=== PATIENT | male | born 1980 | race Caucasian/White ===

== ENCOUNTER 2017-10-27 05:28 | Emergency (ER) | payer MEDICAID, SELFPAY ==
[2017-10-27 06:40] LABS: BASO # 0.1 10^3/uL (0.0-0.2); BASO % 1.2 % (0.0-1.0); EOS # 0.2 10^3/uL (0.0-0.50); HEMATOCRIT 28.7 % (42.0-52.0); HEMOGLOBIN 9.3 g/dl (13.5-17.5); IMMATURE GRANULOCYTE % 0.2 % (0-3.0); LYMPH # 2.1 10^3/uL (1.5-4.5); LYMPH % 37.7 % (24.0-44.0); MEAN CORPUSCULAR HEMOGLOBIN 24.9 pg (27.0-33.0); MEAN CORPUSCULAR HGB CONC 32.4 g/dl (32.0-36.5); MEAN CORPUSCULAR VOLUME 76.9 fl (80.0-96.0); MONO # 0.5 10^3/uL (0.0-0.8); MONO % 9.3 % (0.0-5.0); NEUTROPHILS # 2.8 10^3/uL (1.8-7.7); NEUTROPHILS % 48.6 % (36.0-66.0); PLATELET COUNT, AUTOMATED 270 10^3/uL (150-450); RED BLOOD COUNT 3.73 10^6/uL (4.30-6.10); RED CELL DISTRIBUTION WIDTH 15.8 % (11.5-14.5); WHITE BLOOD COUNT 5.7 10^3/uL (4.0-10.0)
[2017-10-27] MEDS: GASTROGRAFIN SOLUTION 30ML PO ×4 (07:23→08:03)
[2017-10-27] MEDS: MORPHINE 4 MG/ML 1ML VIAL/SYRINGE (J2270) IV ×2 (07:24)
[2017-10-27] MEDS: NS 1,000 ML IV ×2 (07:25)
[2017-10-27 07:27] LABS: ALBUMIN 3.9 GM/DL (3.2-5.2); ALBUMIN/GLOBULIN RATIO 1.44 (1.00-1.93); ALKALINE PHOSPHATASE 75 U/L (45-117); ALT/SGPT 39 U/L (12-78); AMYLASE 35 U/L (25-115); ANION GAP 11 MEQ/L (8-16); AST/SGOT 25 U/L (7-37); BILIRUBIN,DIRECT < 0.1 MG/DL (0.0-0.2); BILIRUBIN,TOTAL 0.2 MG/DL (0.2-1.0); BLOOD UREA NITROGEN 13 MG/DL (7-18); CALCIUM LEVEL 7.9 MG/DL (8.5-10.1); CARBON DIOXIDE LEVEL 23 MEQ/L (21-32); CHLORIDE LEVEL 109 MEQ/L (98-107); CREATININE FOR GFR 0.97 MG/DL (0.70-1.30); GLOMERULAR FILTRATION RATE > 60.0 (>60); GLUCOSE, FASTING 128 MG/DL (70-100); LIPASE 272 U/L (73-393); POTASSIUM SERUM 3.8 MEQ/L (3.5-5.1); SODIUM LEVEL 143 MEQ/L (136-145); TOTAL PROTEIN 6.6 GM/DL (6.4-8.2)
[2017-10-27] MEDS ORDERED: ISOVUE-370 76% 100ML VIAL (Q9967) As Ordered ×2 (08:18)
[2017-10-27 09:14] LABS: KETONE, URINE AUTO RFX TRACE mg/dL (NEGATIVE); LEUKOCYTE ESTERASE UR AUTO RFX NEGATIVE (NEGATIVE); MUCUS, URINE RFX LARGE (NEGATIVE); NITRITE, URINE AUTO RFX NEGATIVE (NEGATIVE); RBC, URINE AUTO RFX 0 /HPF (0-3); SPECIFIC GRAVITY UR AUTO RFX 1.034 (1.002-1.035); SQUAM EPITHELIAL CELL UR AURFX 0 /HPF (0-6); WBC, URINE AUTO RFX 0 /HPF (0-3)
[2017-10-27 09:51] LABS: MICROSCOPIC INDICATED? RFX NO (NO)
== END 2017-10-27 10:08 | disposition home or self-care (01) ==
LOC: M ED 05:28
DX: K59.00 Constipation, unspecified (principal); K56.7 Ileus, unspecified; K50.90 Crohn's disease, unspecified, without complications; K64.9 Unspecified hemorrhoids; F17.200 Nicotine dependence, unspecified, uncomplicated; Z88.8 Allergy status to other drugs, medicaments and biological substances
CPT/HCPCS: J2270

== ENCOUNTER 2018-01-08 15:57 | Emergency (ER) | payer OTHER, MEDICAID ==
[2018-01-08] MEDS: AZITHROMYCIN 250 MG TAB PO (16:15)
[2018-01-08] MEDS: cefTRIAXone SOD 250 MG VIAL (J0696) IM (16:15)
[2018-01-08 18:05] LABS: CHLAMYDIA DNA AMPLIFICATION NEGATIVE (NEGATIVE); GC DNA AMPLIFICATION NEGATIVE (NEGATIVE)
== END 2018-01-08 16:43 | disposition home or self-care (01) ==
LOC: M ED 15:57
DX: Z11.3 Encounter for screening for infections with a predominantly sexual mode of transmission (principal); K50.90 Crohn's disease, unspecified, without complications; F17.200 Nicotine dependence, unspecified, uncomplicated; Z88.8 Allergy status to other drugs, medicaments and biological substances; Z79.899 Other long term (current) drug therapy
CPT/HCPCS: J0696

== ENCOUNTER 2018-08-25 22:28 | Emergency (ER) | payer MEDICAID, OTHER ==
[~2018-08-25] VITALS: Ht 165.1 cm; Wt 97.3 kg
[~2018-08-25 22:28] MED LIST: DOXY100C37 PO; GABA-845 PO; MIRA3350 PO; OMEP40CA2 PO; VALT500T PO; WELLTAB38 PO
[2018-08-25 23:30] LABS: BASO # 0.1 10^3/uL (0.0-0.2); BASO % 1.1 % (0.0-1.0); EOS # 0.1 10^3/uL (0.0-0.50); EOS % 1.6 % (0.0-3.0); HEMATOCRIT 39.4 % (42.0-52.0); LYMPH # 2.1 10^3/uL (1.5-4.5); LYMPH % 34.5 % (24.0-44.0); MEAN CORPUSCULAR HEMOGLOBIN 23.1 pg (27.0-33.0); MEAN CORPUSCULAR HGB CONC 30.5 g/dl (32.0-36.5); MEAN CORPUSCULAR VOLUME 75.8 fl (80.0-96.0); MONO # 0.8 10^3/uL (0.0-0.8); MONO % 12.6 % (0.0-5.0); PLATELET COUNT, AUTOMATED 234 10^3/uL (150-450); WHITE BLOOD COUNT 6.1 10^3/uL (4.0-10.0)
[2018-08-25 23:50] LABS: ALBUMIN 4.2 GM/DL (3.2-5.2); ALT/SGPT 53 U/L (12-78); BILIRUBIN,DIRECT < 0.1 MG/DL (0.0-0.2); BILIRUBIN,TOTAL 0.3 MG/DL (0.2-1.0); BLOOD UREA NITROGEN 8 MG/DL (7-18); CALCIUM LEVEL 8.9 MG/DL (8.5-10.1); CARBON DIOXIDE LEVEL 24 MEQ/L (21-32); CHLORIDE LEVEL 110 MEQ/L (98-107); CREATININE FOR GFR 1.09 MG/DL (0.70-1.30); GLOMERULAR FILTRATION RATE > 60.0 (>60); GLUCOSE, FASTING 85 MG/DL (70-100); LIPASE 129 U/L (73-393); POTASSIUM SERUM 4.1 MEQ/L (3.5-5.1); SODIUM LEVEL 142 MEQ/L (136-145); TOTAL PROTEIN 7.6 GM/DL (6.4-8.2)
[2018-08-26] MEDS ORDERED: KETOROLAC 30 MG/ML VIAL (J1885) IV ONE (00:15)
[2018-08-26] MEDS ORDERED: DICYCLOMINE INJ 20MG/2ML (J0500) IM ONE (00:15)
[2018-08-26] MEDS ORDERED: NS 1,000 ML IV ONE (00:15)
[2018-08-26] MEDS: GASTROGRAFIN SOLUTION 30ML PO SCH ×2 (00:56→01:25)
[2018-08-26] MEDS ORDERED: MORPHINE 2 MG/ML 1ML SYRINGE (J2270) IV ONE (01:00)
[2018-08-26] MEDS ORDERED: ONDANSETRON 4MG/2ML VIAL (J2405) IV ONE (01:00)
[2018-08-26] MEDS ORDERED: ISOVUE-370 76% 100ML VIAL (Q9967) As Ordered ONE (02:14)
[2018-08-26 05:15] VITALS: BP 112/63
--- NOTE | 2018-08-26 05:16 | REPVR ---
EXAM: CT Abdomen and Pelvis With Contrast EXAM DATE/TIME: 08/26/2018 2:22 AM CLINICAL HISTORY: 37 years old, male; Abdominal pain; Localized; Left lower quadrant (llq); Additional info: Left lower quadrant abdominal pain TECHNIQUE: Imaging protocol: Axial computed tomography images of the abdomen and pelvis with intravenous contrast. Coronal and sagittal reformatted images were created and reviewed. Radiation optimization: All CT scans at this facility use at least one of these dose optimization techniques: automated exposure control; mA and/or kV adjustment per patient size (includes targeted exams where dose is matched to clinical indication); or iterative reconstruction. Contrast material: ISOVUE 370; Contrast volume: 100 ml; Contrast route: IV; COMPARISON: CT ABD/PEL W/IV ORAL CONTRAS 10/27/2017 8:22 AM FINDINGS: Lungs: The visualized portions of the lung bases are normal. Liver: There is a diffuse decrease in hepatic parenchymal density, consistent with fatty infiltration. Gallbladder and bile ducts: The gallbladder is normal with no stones or biliary ductal dilation. Pancreas: The pancreas is normal with no ductal dilation. Spleen: The spleen demonstrates punctate calcifications, consistent with remote granulomatous organism exposure. Adrenals: The adrenal glands are normal. Kidneys and ureters: The kidneys are normal. There are no ureteral stones or hydronephrosis. Stomach and bowel: There is a a short segment of small bowel intussusception in the proximal jejunum in the midline of the upper abdomen, without evidence of associated bowel wall thickening or obstruction. A few nonspecific fluid levels are seen within the small bowel further distally. Mild diverticulosis is present in the distal colon. There is a suggestion of mild, short segment thickening of the colon at the junction of the left and the sigmoid colon, but there is no adjacent stranding. Appendix: A normal appendix is identified. Intraperitoneal space: There is no evidence of free intraperitoneal or pelvic fluid. There is no free intraperitoneal air. Vasculature: The aorta is normal. No aneurysm. Lymph nodes: No lymphadenopathy is seen. Bladder: The bladder is mostly collapsed. No bladder stones are identified. Reproductive: The prostate gland and seminal vesicles are normal. Bones/joints: No suspicious osseous lesions. No acute fractures or dislocations. Soft tissues: There is nonspecific stranding in the right external iliac/inguinal region, unchanged from the prior exam which may be scar tissue. There is a small periumbilical hernia containing fat. IMPRESSION: 1. Suggestion of mild short segment thickening of the distal colon. In the setting of mild diverticulosis this could represent early or mild diverticulitis, but there is no significant adjacent inflammatory stranding or fluid. 2. Short segment intussusception in the proximal jejunum without dilation or thickening, probably incidental and likely transient. 3. Fatty liver. Electronically signed by: Emilia Peterson On 08/26/2018 05:16:24 AM
[2018-08-26] MEDS ORDERED: CIPR-249 PO (05:37)
[2018-08-26] MEDS ORDERED: FLAG500T PO (05:38)
== END 2018-08-26 06:28 | disposition home or self-care (01) ==
LOC: M ED 22:28
DX: K52.9 Noninfective gastroenteritis and colitis, unspecified (principal); K50.90 Crohn's disease, unspecified, without complications; Z79.899 Other long term (current) drug therapy; Z88.8 Allergy status to other drugs, medicaments and biological substances
CPT/HCPCS: 74177; 80048; 80076; 81001; 83690; 85025; 96372; 96374; 96375; 99284; J0500; J1885; J2270; J2405; Q9963; Q9967

== ENCOUNTER 2018-09-16 22:22 | Emergency (ER) | payer OTHER ==
[~2018-09-16] VITALS: Ht 165.1 cm; Wt 45.5 kg
[~2018-09-16 22:22] MED LIST changes: +CIPR-249 PO; +FLAG500T PO
[2018-09-16] MEDS ORDERED: SUMA25TA3 (22:29)
[2018-09-16] MEDS ORDERED: ESCI20TA (22:29)
[2018-09-16] MEDS ORDERED: METR-265 (22:29)
[2018-09-16] MEDS ORDERED: BUPR300T34 (22:29)
[2018-09-16] MEDS ORDERED: GABA600T4 (22:29)
[2018-09-16] MEDS ORDERED: OMEP-221 (22:29)
[2018-09-16] MEDS ORDERED: CIPR500T3 (22:29)
[2018-09-16 23:06] LABS: BASO # 0.1 10^3/uL (0.0-0.2); BASO % 0.9 % (0.0-1.0); EOS # 0.3 10^3/uL (0.0-0.50); EOS % 3.8 % (0.0-3.0); HEMATOCRIT 38.4 % (42.0-52.0); LYMPH # 2.6 10^3/uL (1.5-4.5); MEAN CORPUSCULAR HEMOGLOBIN 23.9 pg (27.0-33.0); MEAN CORPUSCULAR HGB CONC 31.3 g/dl (32.0-36.5); MEAN CORPUSCULAR VOLUME 76.3 fl (80.0-96.0); MONO # 0.9 10^3/uL (0.0-0.8); MONO % 12.4 % (0.0-5.0); NEUTROPHILS # 3.2 10^3/uL (1.8-7.7); NEUTROPHILS % 45.8 % (36.0-66.0); PLATELET COUNT, AUTOMATED 238 10^3/uL (150-450); RED BLOOD COUNT 5.03 10^6/uL (4.30-6.10)
[2018-09-16 23:26] LABS: ALT/SGPT 39 U/L (12-78); BILIRUBIN,DIRECT < 0.1 MG/DL (0.0-0.2); BILIRUBIN,TOTAL 0.2 MG/DL (0.2-1.0); LIPASE 183 U/L (73-393); TOTAL PROTEIN 7.1 GM/DL (6.4-8.2)
[2018-09-16 23:30] LABS: PARTIAL THROMBOPLASTIN TIME 27.8 SECONDS (25.0-38.4); PROTHROMBIN TIME 12.9 SECONDS (11.8-14.0)
[2018-09-16] MEDS ORDERED: methylPREDNISolone INJ 125 MG/2 ML VIAL (J2930) IV ONE (23:30)
[2018-09-16] MEDS ORDERED: NS 1,000 ML IV ONE (23:30)
[2018-09-16] MEDS ORDERED: MORPHINE 4 MG/ML 1ML VIAL/SYRINGE (J2270) IV ONE (23:30)
[2018-09-17] MEDS ORDERED: MEDR4PAK PO (00:13)
[2018-09-17] MEDS ORDERED: ANUS2.5C2 TOP (00:13)
[2018-09-17] MEDS ORDERED: NORCO 5/325MG TABLET (BULK FOR ED) PO ONE (00:30)
[2018-09-17 00:51] VITALS: BP 134/57
--- NOTE | 2018-09-17 09:47 | REP ---
HISTORY: Abdominal pain. History of Crohn's disease. FINDINGS: Supine and upright views of the abdomen show the intestinal gas pattern to be nonspecific. Gas and stool is seen throughout the colon within the rectosigmoid region. The organ silhouettes insofar as delineated appear unremarkable. No abdominal calcific densities are seen within the abdomen or pelvis. The accompanying single frontal view of the chest shows no free subdiaphragmatic air, cardiomegaly, infiltrates or effusions. IMPRESSION: Nonspecific intestinal gas pattern. Electronically Signed by Alexandre Zhou DO 09/17/2018 10:05 A
== END 2018-09-17 01:31 | disposition home or self-care (01) ==
LOC: M ED 22:22
DX: K50.90 Crohn's disease, unspecified, without complications (principal); K92.2 Gastrointestinal hemorrhage, unspecified; K64.8 Other hemorrhoids; Z79.899 Other long term (current) drug therapy; Z88.8 Allergy status to other drugs, medicaments and biological substances
CPT/HCPCS: 74021; 80047; 80076; 83690; 85025; 85610; 85730; 96374; 96375; 99284; J2270; J2930

== ENCOUNTER 2018-11-17 22:37 | Emergency (ER) | payer OTHER ==
[~2018-11-17 22:37] MED LIST changes: +ANUS2.5C2 TOP; +BUPR300T34; +CIPR500T3; +ESCI20TA; +GABA600T4; +MEDR4PAK PO; +METR-265; +OMEP-221; -OMEP40CA2 PO; +OMEP40CA97 PO; +SUMA25TA3
[2018-11-17] MEDS ORDERED: MORPHINE 4 MG/ML 1ML VIAL/SYRINGE (J2270) IV ONE (23:30)
[2018-11-17 23:37] LABS: BASO # 0.1 10^3/uL (0.0-0.2); BASO % 1.2 % (0.0-1.0); EOS # 0.2 10^3/uL (0.0-0.5); EOS % 2.6 % (0.0-3.0); HEMATOCRIT 34.4 % (42.0-52.0); HEMOGLOBIN 10.5 g/dl (13.5-17.5); LYMPH # 2.3 10^3/uL (1.5-5.0); LYMPH % 37.6 % (24.0-44.0); MEAN CORPUSCULAR HGB CONC 30.5 g/dl (32.0-36.5); MEAN CORPUSCULAR VOLUME 78.7 fl (80.0-96.0); MONO # 0.7 10^3/uL (0.0-0.8); MONO % 10.7 % (0.0-5.0); NEUTROPHILS # 2.9 10^3/uL (1.5-8.5); NEUTROPHILS % 47.7 % (36.0-66.0); PLATELET COUNT, AUTOMATED 247 10^3/uL (150-450); RED BLOOD COUNT 4.37 10^6/uL (4.30-6.10); WHITE BLOOD COUNT 6.1 10^3/uL (4.0-10.0)
[2018-11-17] MEDS: GASTROGRAFIN SOLUTION 30ML PO SCH ×2 (23:38→23:57)
[2018-11-17 23:59] LABS: PROTHROMBIN TIME 12.9 SECONDS (11.8-14.0)
[2018-11-18] LABS: PARTIAL THROMBOPLASTIN TIME 27.8 SECONDS (25.0-38.4)
[2018-11-18 00:04] LABS: ALBUMIN 4.1 GM/DL (3.2-5.2); ALT/SGPT 40 U/L (12-78); BILIRUBIN,DIRECT < 0.1 MG/DL (0.0-0.2); BILIRUBIN,TOTAL 0.2 MG/DL (0.2-1.0); BLOOD UREA NITROGEN 9 MG/DL (7-18); CARBON DIOXIDE LEVEL 27 MEQ/L (21-32); CHLORIDE LEVEL 107 MEQ/L (98-107); CREATININE FOR GFR 1.13 MG/DL (0.70-1.30); GLOMERULAR FILTRATION RATE > 60.0 (>60); GLUCOSE, FASTING 81 MG/DL (70-100); LIPASE 193 U/L (73-393); POTASSIUM SERUM 3.8 MEQ/L (3.5-5.1); SODIUM LEVEL 142 MEQ/L (136-145); TOTAL PROTEIN 7.2 GM/DL (6.4-8.2)
[2018-11-18] MEDS ORDERED: ISOVUE-370 76% 100ML VIAL (Q9967) As Ordered ONE (00:36)
[2018-11-18 02:00] VITALS: BP 120/69
--- NOTE | 2018-11-18 02:05 | REPVR ---
PROCEDURE INFORMATION: Exam: CT Abdomen And Pelvis With Contrast Exam date and time: 11/17/2018 11:16 PM Clinical history: 38 years old, male; Abdominal pain; Generalized; Additional info: Crohn's pain TECHNIQUE: Imaging protocol: Computed tomography of the abdomen and pelvis with intravenous contrast. Radiation optimization: All CT scans at this facility use at least one of these dose optimization techniques: automated exposure control; mA and/or kV adjustment per patient size (includes targeted exams where dose is matched to clinical indication); or iterative reconstruction. Contrast material: ISO; Contrast volume: 100 ml; Contrast route: AC; COMPARISON: CT ABD/PEL W/IV ORAL CONTRAS 08/26/2018 2:20 AM FINDINGS: Liver: Hepatic steatosis. Gallbladder and bile ducts: Normal. No calcified stones. No ductal dilation. Pancreas: Normal. No ductal dilation. Spleen: Couple splenic calcifications. Adrenals: Normal. No mass. Kidneys and ureters: Normal. No hydronephrosis. Stomach and bowel: Flocculated contrast in the small bowel. Thickening of the sigmoid colon, and several small bowel loops appear questionably mildly thickened. Suspect mild or moderate active Crohn's disease, without fistula, or extraluminal involvement. Appendix: No evidence of appendicitis. Intraperitoneal space: Unremarkable. No free air. No significant fluid collection. Vasculature: Unremarkable. No abdominal aortic aneurysm. Lymph nodes: Unremarkable. No enlarged lymph nodes. Bladder: Unremarkable as visualized. Reproductive: Unremarkable as visualized. Bones/joints: Unremarkable. No acute fracture. Soft tissues: Unremarkable. IMPRESSION: Thickening of the sigmoid colon, and several small bowel loops appear questionably mildly thickened. Suspect mild or moderate active Crohn's disease, without fistula, or extraluminal involvement. Electronically signed by: Mundo Schmitz On 11/18/2018 02:05:03 AM
== END 2018-11-18 02:30 | disposition home or self-care (01) ==
LOC: M ED 22:37
DX: K52.9 Noninfective gastroenteritis and colitis, unspecified (principal); K50.90 Crohn's disease, unspecified, without complications; Z79.899 Other long term (current) drug therapy; Z88.8 Allergy status to other drugs, medicaments and biological substances; F17.210 Nicotine dependence, cigarettes, uncomplicated
CPT/HCPCS: 74177; 80048; 80076; 83690; 85025; 85610; 85730; 96374; 99284; J2270; Q9963; Q9967

== ENCOUNTER 2019-02-27 11:44 | Emergency (ER) | payer OTHER ==
[~2019-02-27] VITALS: Ht 165.1 cm; Wt 89.1 kg
[~2019-02-27 11:44] MED LIST changes: -BUPR300T34; +BUPR300T92
[2019-02-27 11:45] VITALS: BP 118/67
[2019-02-27] MEDS ORDERED: SUCR1TAB56 (11:54)
[2019-02-27] MEDS ORDERED: ONDA4TAB6 (11:54)
[2019-02-27 16:07] LABS: BASO # 0.1 10^3/uL (0.0-0.2); EOS # 0.2 10^3/uL (0.0-0.5); EOS % 2.8 % (0.0-3.0); HEMATOCRIT 33.1 % (42.0-52.0); HEMOGLOBIN 9.3 g/dl (13.5-17.5); LYMPH # 2.2 10^3/uL (1.5-5.0); LYMPH % 32.5 % (24.0-44.0); MEAN CORPUSCULAR HGB CONC 28.1 g/dl (32.0-36.5); MEAN CORPUSCULAR VOLUME 74.9 fl (80.0-96.0); MONO # 0.7 10^3/uL (0.0-0.8); MONO % 10.3 % (0.0-5.0); NEUTROPHILS # 3.7 10^3/uL (1.5-8.5); NEUTROPHILS % 53.1 % (36.0-66.0); PLATELET COUNT, AUTOMATED 252 10^3/uL (150-450); RED BLOOD COUNT 4.42 10^6/uL (4.30-6.10); WHITE BLOOD COUNT 6.9 10^3/uL (4.0-10.0)
[2019-02-27 16:27] LABS: ALBUMIN 4.2 GM/DL (3.2-5.2); ALT/SGPT 25 U/L (12-78); BILIRUBIN,DIRECT < 0.1 MG/DL (0.0-0.2); BILIRUBIN,TOTAL 0.3 MG/DL (0.2-1.0); BLOOD UREA NITROGEN 14 MG/DL (7-18); CALCIUM LEVEL 8.5 MG/DL (8.5-10.1); CARBON DIOXIDE LEVEL 24 MEQ/L (21-32); CHLORIDE LEVEL 112 MEQ/L (98-107); CREATININE FOR GFR 0.94 MG/DL (0.70-1.30); GLOMERULAR FILTRATION RATE > 60.0 (>60); GLUCOSE, FASTING 111 MG/DL (70-100); LIPASE 193 U/L (73-393); POTASSIUM SERUM 4.3 MEQ/L (3.5-5.1); SODIUM LEVEL 140 MEQ/L (136-145); TOTAL PROTEIN 7.2 GM/DL (6.4-8.2)
[2019-02-27] MEDS ORDERED: MORPHINE 4 MG/ML 1ML VIAL/SYRINGE (J2270) IM ONE (17:30)
[2019-02-27] MEDS ORDERED: ONDANSETRON 4 MG ORAL DISINTEGRATING TAB (Q0162 PER 1MG) PO ONE (17:30)
[2019-02-27] MEDS ORDERED: NORC1TAB7 PO (18:07)
[2019-02-27] MEDS ORDERED: ONDA4TAB6 PO (18:07)
== END 2019-02-27 18:17 | disposition home or self-care (01) ==
LOC: M ED 11:44
DX: K50.90 Crohn's disease, unspecified, without complications (principal); F17.200 Nicotine dependence, unspecified, uncomplicated; Z79.899 Other long term (current) drug therapy; Z88.8 Allergy status to other drugs, medicaments and biological substances
CPT/HCPCS: 80048; 80076; 83690; 85025; 96372; 99283; J2270; Q0162

== ENCOUNTER 2019-08-19 02:34 | Emergency (ER) | payer OTHER ==
[~2019-08-19] VITALS: Ht 165.1 cm; Wt 93.4 kg
[2019-08-19 02:34] VITALS: BP 130/67
[~2019-08-19 02:34] MED LIST changes: +NORC1TAB7 PO; +ONDA4TAB6; +ONDA4TAB6 PO; +SUCR1TAB56
[2019-08-19] MEDS ORDERED: traMADol 50 MG TAB (BULK 4 TAB ED) PO ONE (03:15)
[2019-08-19] MEDS ORDERED: SILVER SULFADIAZINE 1% CR 50 GM JAR TOP ONE (03:15)
[2019-08-19] MEDS ORDERED: KETOROLAC 60MG 2ML VIAL IM ONE (03:15)
== END 2019-08-19 04:00 | disposition home or self-care (01) ==
LOC: M ED 02:34
DX: T22.011A Burn of unspecified degree of right forearm, initial encounter (principal); Y99.0 Civilian activity done for income or pay; X12.XXXA Contact with other hot fluids, initial encounter; Y92.89 Other specified places as the place of occurrence of the external cause; Y93.9 Activity, unspecified; F17.200 Nicotine dependence, unspecified, uncomplicated; Z88.8 Allergy status to other drugs, medicaments and biological substances; K50.90 Crohn's disease, unspecified, without complications; Z79.899 Other long term (current) drug therapy
CPT/HCPCS: 99282; J1885

== ENCOUNTER 2019-10-17 17:52 | Emergency (ER) | payer OTHER ==
[~2019-10-17] VITALS: Ht 165.1 cm; Wt 91.3 kg
[2019-10-17] MEDS ORDERED: ATOM25CA7 PO (18:24)
--- NOTE | 2019-10-17 19:36 | REPVR ---
PROCEDURE INFORMATION: Exam: XR Nose to Rectum For Foreign Body, Child, 1 View Exam date and time: 10/17/2019 6:26 PM Age: 39 years old Clinical indication: Abnormal findings; PT states he swallowed two tongue ring balls. ; Additional info: Swallowed tongue ring TECHNIQUE: Imaging protocol: XR of the nose to rectum for foreign body of a child, 1 view. COMPARISON: CT ABD/PEL W/IV ORAL CONTRAS 11/18/2018 12:55 AM FINDINGS: Lungs: No radiopaque foreign body. No acute infiltrate. Gastrointestinal tract: No radiopaque foreign body. Soft tissues: Two small metallic rounded densities in the right lower abdomen measuring 5 mm and 8 mm. IMPRESSION: Metallic foreign bodies measuring 5 mm and 8 mm in the right lower quadrant. Electronically signed by: Rodolfo Weinstein On 10/17/2019 19:35:45 PM
[2019-10-17] MEDS ORDERED: NS 1,000 ML IV ONE (21:30)
[2019-10-17 21:59] LABS: BASO # 0.1 10^3/uL (0.0-0.2); BASO % 0.8 % (0.0-1.0); EOS # 0.3 10^3/uL (0.0-0.5); EOS % 4.7 % (0.0-3.0); HEMATOCRIT 36.5 % (42.0-52.0); HEMOGLOBIN 10.1 g/dl (13.5-17.5); LYMPH % 30.2 % (24.0-44.0); MEAN CORPUSCULAR HEMOGLOBIN 20.1 pg (27.0-33.0); MEAN CORPUSCULAR HGB CONC 27.7 g/dl (32.0-36.5); MEAN CORPUSCULAR VOLUME 72.6 fl (80.0-96.0); MONO # 0.7 10^3/uL (0.0-0.8); MONO % 9.9 % (0.0-5.0); NEUTROPHILS # 3.6 10^3/uL (1.5-8.5); NEUTROPHILS % 54.2 % (36.0-66.0); PLATELET COUNT, AUTOMATED 286 10^3/uL (150-450); RED BLOOD COUNT 5.03 10^6/uL (4.30-6.10); WHITE BLOOD COUNT 6.6 10^3/uL (4.0-10.0)
[2019-10-17 22:17] LABS: ERYTHROCYTE SEDIMENTATION RATE 4 mm/hr (0-15)
[2019-10-17] MEDS ORDERED: ISOVUE-370 76% 100ML VIAL As Ordered ONE (22:19)
[2019-10-17 22:21] LABS: INR 0.98; PARTIAL THROMBOPLASTIN TIME 29.4 SECONDS (25.0-38.4); PROTHROMBIN TIME 13.2 SECONDS (11.8-14.0)
[2019-10-17 22:28] LABS: ALT/SGPT 28 U/L (12-78); BILIRUBIN,DIRECT < 0.1 MG/DL (0.0-0.2); BILIRUBIN,TOTAL 0.2 MG/DL (0.2-1.0); C REACTIVE PROTEIN QUANTITATIV 0.79 MG/DL (0.00-0.30); CK-MB VALUE MASS 2.9 NG/ML (<3.6); CPK CREATINE PHOSPHOKINASE 244 U/L (39-308); LIPASE 206 U/L (73-393); MB/CK RELATIVE INDEX 1.19 (< OR =4); TOTAL PROTEIN 7.4 GM/DL (6.4-8.2); TROPONIN I < 0.02 NG/ML (< 0.10)
--- NOTE | 2019-10-17 23:12 | REPVR ---
PROCEDURE INFORMATION: Exam: CT Abdomen And Pelvis With Contrast Exam date and time: 10/17/2019 10:34 PM Age: 39 years old Clinical indication: Abdominal pain; Localized; Right upper quadrant (ruq); Additional info: Ruq pain TECHNIQUE: Imaging protocol: Computed tomography of the abdomen and pelvis with intravenous contrast. Radiation optimization: All CT scans at this facility use at least one of these dose optimization techniques: automated exposure control; mA and/or kV adjustment per patient size (includes targeted exams where dose is matched to clinical indication); or iterative reconstruction. Contrast material: ISOVUE 370; Contrast volume: 100 ml; Contrast route: INTRAVENOUS (IV); COMPARISON: CT ABD/PEL W/IV ORAL CONTRAS 11/18/2018 12:55 AM FINDINGS: Liver: Normal. No mass. Gallbladder and bile ducts: Normal. No calcified stones. No ductal dilation. Pancreas: Normal. No ductal dilation. Spleen: Normal. No splenomegaly. Adrenals: Normal. No mass. Kidneys and ureters: Normal. No hydronephrosis. Stomach and bowel: Scattered diverticulosis of the colon. Appendix: No evidence of appendicitis. Intraperitoneal space: Unremarkable. No free air. No significant fluid collection. Vasculature: Unremarkable. No abdominal aortic aneurysm. Lymph nodes: Unremarkable. No enlarged lymph nodes. Bladder: Unremarkable as visualized. Reproductive: Unremarkable as visualized. Bones/joints: Unremarkable. No acute fracture. Soft tissues: Unremarkable. IMPRESSION: No acute abdominal or pelvic abnormality. Electronically signed by: Rodolfo Weinstein On 10/17/2019 23:12:06 PM
[2019-10-17] MEDS ORDERED: MAGNESIUM CITRATE 300 ML BTL PO ONE (23:45)
[2019-10-18 00:14] VITALS: BP 122/76
--- NOTE | 2019-10-19 13:48 | ED PDOC ---
Post-Departure Follow-Up brittney manriquez faxed formal report of now to rectum film fo rfu mlg Flor Garcia MD Oct 19, 2019 13:48
--- NOTE | 2019-10-23 20:54 | ECGEPIP ---
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
== END 2019-10-18 00:17 | disposition home or self-care (01) ==
LOC: M ED 17:52
DX: T18.9XXA Foreign body of alimentary tract, part unspecified, initial encounter (principal); R10.9 Unspecified abdominal pain; R00.1 Bradycardia, unspecified; K50.90 Crohn's disease, unspecified, without complications; Z79.899 Other long term (current) drug therapy; Z88.8 Allergy status to other drugs, medicaments and biological substances
CPT/HCPCS: 74177; 76010; 80047; 80076; 82550; 82553; 83605; 83690; 85025; 85610; 85652; 85730; 86140; 93005; 96360; 99284; Q9967

== ENCOUNTER 2019-12-05 20:01 | Emergency (ER) | payer OTHER ==
[~2019-12-05] VITALS: Ht 165.1 cm; Wt 97.7 kg
[2019-12-05 20:01] VITALS: BP 134/71
[~2019-12-05 20:01] MED LIST changes: +ATOM25CA7 PO
[2019-12-05] MEDS ORDERED: SUCR1TAB56 (20:15)
[2019-12-05] MEDS ORDERED: GABA600T4 (20:15)
[2019-12-05] MEDS ORDERED: PANT40TA29 (20:15)
[2019-12-05] MEDS ORDERED: BUPR300T92 (20:15)
[2019-12-05] MEDS ORDERED: DICY10CA13 (20:15)
[2019-12-05] MEDS ORDERED: NAPROXEN 250 MG TAB PO ONE (20:45)
[2019-12-05] MEDS ORDERED: LIDOCAINE 4% CREAM 5GM (LMX4) TOP ONE (20:45)
--- NOTE | 2019-12-05 21:17 | REPVR ---
PROCEDURE INFORMATION: Exam: XR Right Shoulder Exam date and time: 12/05/2019 8:34 PM Age: 39 years old Clinical indication: Other: Pain; Additional info: Pain, difficulty lifting, no specific mar TECHNIQUE: Imaging protocol: XR Right shoulder. Views: 2 or more views. COMPARISON: No relevant prior studies available. FINDINGS: Bones/joints: Bony mineralization is normal for age. No evidence of acute fracture. No concerning osseous lesion. AC joint is aligned normally. Glenohumeral joint is aligned normally. Visualized upper ribs are unremarkable. Soft tissues: No abnormal soft tissue process. No concerning soft tissue calcifications. IMPRESSION: Unremarkable shoulder radiographs. Electronically signed by: Jeremiah Woo On 12/05/2019 21:17:14 PM
[2019-12-05] MEDS ORDERED: ANEC4CRE3 TOP (21:22)
[2019-12-05] MEDS ORDERED: NAPR-837 PO (21:22)
== END 2019-12-05 21:37 | disposition home or self-care (01) ==
LOC: M ED 20:01
DX: M25.511 Pain in right shoulder (principal); K50.90 Crohn's disease, unspecified, without complications; F17.200 Nicotine dependence, unspecified, uncomplicated; Z79.899 Other long term (current) drug therapy; Z88.8 Allergy status to other drugs, medicaments and biological substances

== ENCOUNTER → 2022-05-03 | Outpatient (REF) | payer OTHER ==
[~2022-05-03] MED LIST changes: +ANEC4CRE3 TOP; +DICY10CA13; +DOXY-443 PO; -DOXY100C37 PO; -ESCI20TA; +ESCI20TA16; +GABA-283 PO; -GABA-845 PO; +NAPR-837 PO; -OMEP-221; +OMEP40CA4 PO; +OMEP40CA5; -OMEP40CA97 PO; +PANT40TA29
[2022-05-03 19:02] LABS: BASO # 0.1 10^3/uL (0.0-0.2); BASO % 1.2 % (0.0-1.0); EOS # 0.1 10^3/uL (0.0-0.5); EOS % 2.4 % (0.0-3.0); HEMATOCRIT 30.7 % (42.0-52.0); HEMOGLOBIN 8.6 g/dl (13.5-17.5); LYMPH # 2.1 10^3/uL (1.5-5.0); LYMPH % 35.7 % (24.0-44.0); MEAN CORPUSCULAR HEMOGLOBIN 22.3 pg (27.0-33.0); MEAN CORPUSCULAR VOLUME 79.7 fl (80.0-96.0); MONO # 0.7 10^3/uL (0.0-0.8); NEUTROPHILS # 2.8 10^3/uL (1.5-8.5); NEUTROPHILS % 48.5 % (36.0-66.0); PLATELET COUNT, AUTOMATED 252 10^3/uL (150-450); RED BLOOD COUNT 3.85 10^6/uL (4.30-6.10); WHITE BLOOD COUNT 5.8 10^3/uL (4.0-10.0)
[2022-05-03 19:29] LABS: ALBUMIN 4.3 G/DL (3.2-5.2); ALKALINE PHOSPHATASE 80 U/L (46-116); ALT/SGPT 12 U/L (7.0-40); AST/SGOT 19 U/L (<34); BILIRUBIN,TOTAL 0.3 MG/DL (0.3-1.2); BLOOD UREA NITROGEN 14 MG/DL (9-23); CALCIUM LEVEL 8.7 MG/DL (8.5-10.1); CARBON DIOXIDE LEVEL 22 MMOL/L (20-31); CHLORIDE LEVEL 109 MMOL/L (98-107); CHOLESTEROL LEVEL 156 MG/DL (<200); CHOLESTEROL RISK RATIO 4.13 (<5); CREATININE FOR GFR 0.77 MG/DL (0.70-1.30); GLOMERULAR FILTRATION RATE > 60.0 (>60); GLUCOSE, FASTING 120 MG/DL (60-100); HDL CHOLESTEROL 37.7 MG/DL (>40); LDL CHOLESTEROL 90.7 MG/DL (<100); NON-HDL-C 118.3 MG/DL; SODIUM LEVEL 141 MMOL/L (136-145); TRIGLYCERIDES LEVEL 138 MG/DL (<150)
[2022-05-03 19:31] LABS: THYROID STIMULATING HORMONE 3.496 uIU/ML (0.55-4.78); TOTAL 25(OH) VITAMIN D 17.5 NG/ML (20.0-100.0)
[2022-05-03 20:20] LABS: HEMOGLOBIN A1c 6.4 % (4.0-6.0)
== END ==
LOC: M LAB REF 17:32
PROVIDERS: ATTEND Nurse Practitioner Family
DX: Z13.228 Encounter for screening for other metabolic disorders (principal)

== ENCOUNTER → 2022-05-17 | Outpatient (REF) | payer OTHER ==
[2022-05-17 17:06] LABS: BASO # 0.1 10^3/uL (0.0-0.2); BASO % 1.8 % (0.0-1.0); EOS # 0.1 10^3/uL (0.0-0.5); HEMATOCRIT 31.3 % (42.0-52.0); HEMOGLOBIN 8.8 g/dl (13.5-17.5); LYMPH # 1.1 10^3/uL (1.5-5.0); LYMPH % 27.8 % (24.0-44.0); MEAN CORPUSCULAR HEMOGLOBIN 21.3 pg (27.0-33.0); MEAN CORPUSCULAR HGB CONC 28.1 g/dl (32.0-36.5); MEAN CORPUSCULAR VOLUME 75.8 fl (80.0-96.0); MONO # 0.5 10^3/uL (0.0-0.8); MONO % 13.3 % (2.0-8.0); NEUTROPHILS # 2.2 10^3/uL (1.5-8.5); NEUTROPHILS % 54.1 % (36.0-66.0); PLATELET COUNT, AUTOMATED 259 10^3/uL (150-450); RED BLOOD COUNT 4.13 10^6/uL (4.30-6.10)
== END ==
LOC: M LAB REF 16:38
PROVIDERS: ATTEND Nurse Practitioner Family
DX: D64.9 Anemia, unspecified (principal)

== ENCOUNTER 2023-03-03 15:03 | Inpatient (IN) | payer MEDICAID, OTHER, SELFPAY ==
[~2023-03-03] VITALS: Ht 165.1 cm; Wt 94.6 kg
[2023-03-03] VITALS (8 sets, daily range): BP systolic 109–138; BP diastolic 56–88; TEMP 96.6–98.8; O2SAT 98–100
[2023-03-03 16:22] LABS: BASO # 0.1 10^3/uL (0.0-0.2); BASO % 1.1 % (0.0-1.0); EOS % 0.5 % (0.0-3.0); HEMATOCRIT 22.6 % (42.0-52.0); LYMPH # 1.1 10^3/uL (1.5-5.0); LYMPH % 18.1 % (24.0-44.0); MEAN CORPUSCULAR HEMOGLOBIN 19.7 pg (27.0-33.0); MEAN CORPUSCULAR HGB CONC 27.4 g/dl (32.0-36.5); MONO # 0.6 10^3/uL (0.0-0.8); MONO % 9.2 % (2.0-8.0); NEUTROPHILS # 4.3 10^3/uL (1.5-8.5); NEUTROPHILS % 70.8 % (36.0-66.0); PLATELET COUNT, AUTOMATED 282 10^3/uL (150-450); RED BLOOD COUNT 3.14 10^6/uL (4.30-6.10); WHITE BLOOD COUNT 6.1 10^3/uL (4.0-10.0)
[2023-03-03 16:27] LABS: INR 1.15; PROTHROMBIN TIME 14.4 SECONDS (12.5-14.5)
[2023-03-03 16:28] LABS: PARTIAL THROMBOPLASTIN TIME 26.6 SECONDS (24.8-34.2)
[2023-03-03 16:37] LABS: HEMOGLOBIN 6.2 g/dl (13.5-17.5)
[2023-03-03 16:45] LABS: BLOOD UREA NITROGEN 12 MG/DL (9-23); CALCIUM LEVEL 8.7 MG/DL (8.5-10.1); CARBON DIOXIDE LEVEL 23 MMOL/L (20-31); CHLORIDE LEVEL 110 MMOL/L (98-107); CREATININE FOR GFR 0.78 MG/DL (0.70-1.30); GLOMERULAR FILTRATION RATE > 60.0 (>60); GLUCOSE, FASTING 121 MG/DL (60-100); POTASSIUM SERUM 4.2 MMOL/L (3.5-5.1); SODIUM LEVEL 137 MMOL/L (136-145)
[2023-03-03] MEDS ORDERED: ISOVUE-370 76% 100ML VIAL As Ordered ONE (17:34)
[2023-03-03 17:43] LABS: CPK CREATINE PHOSPHOKINASE 198 U/L (46-171)
[2023-03-03] MEDS: GASTROGRAFIN SOLUTION 30ML PO SCH ×2 (18:14→18:29)
[2023-03-03 18:59] LABS: RSV AMPLIFICATION NEGATIVE (NEGATIVE)
[2023-03-03 20:30] LABS: LIPASE 37 U/L (12-53)
[2023-03-03 20:32] LABS: ALBUMIN 4.1 G/DL (3.2-5.2); ALKALINE PHOSPHATASE 60 U/L (46-116); ALT/SGPT 23 U/L (7.0-40); AST/SGOT 19 U/L (<34); BILIRUBIN,DIRECT 0.2 MG/DL (<0.4); BILIRUBIN,TOTAL 0.5 MG/DL (0.3-1.2); TOTAL PROTEIN 6.8 G/DL (5.7-8.2)
[2023-03-03 20:57] LABS: C REACTIVE PROTEIN QUANTITATIV < 0.40 MG/DL (<1.0)
[2023-03-03 20:58] LABS: ERYTHROCYTE SEDIMENTATION RATE 2 mm/hr (0-15)
[2023-03-03] MEDS ORDERED: methylPREDNISolone 125MG 2ML VIAL IV SCH (21:00)
[2023-03-03] MEDS ORDERED: HOME MED LIST COMPLETE! XX SCH (21:35)
[2023-03-03] MEDS: LR 1,000 ML IV SCH (21:53)
[2023-03-04] VITALS (7 sets, daily range): BP systolic 106–124; BP diastolic 51–63; TEMP 96.6–98.6; O2SAT 95–100
[2023-03-04 03:37] LABS: HEMATOCRIT 27.6 % (42.0-52.0); HEMOGLOBIN 8.1 g/dl (13.5-17.5); MEAN CORPUSCULAR HEMOGLOBIN 21.7 pg (27.0-33.0); MEAN CORPUSCULAR HGB CONC 29.3 g/dl (32.0-36.5); PLATELET COUNT, AUTOMATED 267 10^3/uL (150-450); RED BLOOD COUNT 3.73 10^6/uL (4.30-6.10); WHITE BLOOD COUNT 8.9 10^3/uL (4.0-10.0)
[2023-03-04 03:58] LABS: BLOOD UREA NITROGEN 11 MG/DL (9-23); CALCIUM LEVEL 8.3 MG/DL (8.5-10.1); CARBON DIOXIDE LEVEL 23 MMOL/L (20-31); CHLORIDE LEVEL 108 MMOL/L (98-107); CREATININE FOR GFR 0.71 MG/DL (0.70-1.30); GLOMERULAR FILTRATION RATE > 60.0 (>60); GLUCOSE, FASTING 222 MG/DL (60-100); MAGNESIUM LEVEL 1.8 MG/DL (1.8-2.4); PHOSPHORUS LEVEL 2.7 MG/DL (2.5-4.9); POTASSIUM SERUM 4.2 MMOL/L (3.5-5.1); SODIUM LEVEL 139 MMOL/L (136-145)
[2023-03-04 10:41] LABS: IRON (FE) 14 UG/DL (65-175); PERCENT SATURATION 3.4 % (19.7-50.0); TOTAL IRON BINDING CAPACITY 408 UG/DL (250-425)
[2023-03-04 10:43] LABS: VITAMIN B12 LEVEL 584 PG/ML (211-911)
[2023-03-04 10:44] LABS: FERRITIN < 0.9 NG/ML (10.5-307.3)
[2023-03-04] MEDS: LR 1,000 ML IV SCH ×2 (14:07→23:40)
[2023-03-04] MEDS ORDERED: IRON SUCROSE 200 MG in NS 100 ML IV ONE (15:00)
[2023-03-05 04:34] VITALS: BP 136/73; TEMP 97.7; O2SAT 95
[2023-03-05 06:16] LABS: HEMATOCRIT 26.2 % (42.0-52.0); HEMOGLOBIN 7.6 g/dl (13.5-17.5); MEAN CORPUSCULAR HEMOGLOBIN 21.5 pg (27.0-33.0); MEAN CORPUSCULAR VOLUME 74.2 fl (80.0-96.0); PLATELET COUNT, AUTOMATED 244 10^3/uL (150-450); RED BLOOD COUNT 3.53 10^6/uL (4.30-6.10); WHITE BLOOD COUNT 8.4 10^3/uL (4.0-10.0)
[2023-03-05 07:52] VITALS: BP 117/68; TEMP 97.1; O2SAT 96
[2023-03-05 09:00] VITALS: BP 115/63; TEMP 97.8; O2SAT 98
[2023-03-05] MEDS ORDERED: predniSONE 50 MG TAB PO SCH (09:00)
[2023-03-05 09:25] VITALS: BP 118/64; TEMP 97.9; O2SAT 96
[2023-03-05 10:10] VITALS: BP 118/70; TEMP 97.9; O2SAT 100
[2023-03-05] MEDS ORDERED: AZAT50TA37 PO (10:45)
[2023-03-05] MEDS ORDERED: PRED50TA PO (10:45)
[2023-03-05] MEDS ORDERED: BUDE9TAB PO (10:45)
[2023-03-05] MEDS ORDERED: FERR325T3 PO (10:54)
[2023-03-05] MEDS ORDERED: DOCU100C16 PO (10:54)
[2023-03-05 11:02] VITALS: BP 123/71; TEMP 98.4; O2SAT 99
== END 2023-03-05 12:38 | disposition home or self-care (01) | DRG 663 ==
LOC: M ED 15:03 → M ED INP 20:59 → M PCU 03-04 02:56
PROVIDERS: ADMIT Internal Medicine; ATTEND Internal Medicine
PROC: 30233N1 Transfusion of Nonautologous Red Blood Cells into Peripheral Vein, Percutaneous Approach (ICD-10-PCS; principal; 2023-03-03)
DX: D50.0 Iron deficiency anemia secondary to blood loss (chronic) (principal); F17.210 Nicotine dependence, cigarettes, uncomplicated; K52.9 Noninfective gastroenteritis and colitis, unspecified; Z88.8 Allergy status to other drugs, medicaments and biological substances

== ENCOUNTER → 2023-03-03 | Outpatient (REF) | payer OTHER ==
[~2023-03-03] MED LIST changes: +DICY-61; -DICY10CA13; -GABA-283 PO; +GABA-284 PO
[2023-03-03 13:10] LABS: ALKALINE PHOSPHATASE 62 U/L (46-116); ALT/SGPT 24 U/L (7.0-40); AST/SGOT 14 U/L (<34); BILIRUBIN,TOTAL 0.4 MG/DL (0.3-1.2); BLOOD UREA NITROGEN 12 MG/DL (9-23); CALCIUM LEVEL 8.8 MG/DL (8.5-10.1); CARBON DIOXIDE LEVEL 27 MMOL/L (20-31); CHLORIDE LEVEL 109 MMOL/L (98-107); CHOLESTEROL LEVEL 138 MG/DL (<200); CHOLESTEROL RISK RATIO 3.98 (<5); CREATININE FOR GFR 0.84 MG/DL (0.70-1.30); GLOMERULAR FILTRATION RATE > 60.0 (>60); GLUCOSE, FASTING 119 MG/DL (60-100); HDL CHOLESTEROL 34.6 MG/DL (>40); LDL CHOLESTEROL 84.8 MG/DL (<100); MAGNESIUM LEVEL 1.8 MG/DL (1.8-2.4); NON-HDL-C 103.4 MG/DL; POTASSIUM SERUM 3.9 MMOL/L (3.5-5.1); SODIUM LEVEL 142 MMOL/L (136-145); TOTAL PROTEIN 6.8 G/DL (5.7-8.2); TRIGLYCERIDES LEVEL 93 MG/DL (<150)
[2023-03-03 13:11] LABS: THYROID STIMULATING HORMONE 2.188 uIU/ML (0.55-4.78); TOTAL 25(OH) VITAMIN D 20.3 NG/ML (20.0-100.0)
[2023-03-03 13:30] LABS: BASO # 0.1 10^3/uL (0.0-0.2); BASO % 1.2 % (0.0-1.0); EOS % 0.6 % (0.0-3.0); HEMATOCRIT 24.1 % (42.0-52.0); LYMPH # 1.4 10^3/uL (1.5-5.0); MEAN CORPUSCULAR HEMOGLOBIN 19.6 pg (27.0-33.0); MEAN CORPUSCULAR VOLUME 72.6 fl (80.0-96.0); MONO # 0.6 10^3/uL (0.0-0.8); MONO % 11.4 % (2.0-8.0); NEUTROPHILS % 58.2 % (36.0-66.0); PLATELET COUNT, AUTOMATED 292 10^3/uL (150-450); RED BLOOD COUNT 3.32 10^6/uL (4.30-6.10); WHITE BLOOD COUNT 5.1 10^3/uL (4.0-10.0)
[2023-03-03 13:45] LABS: HEMOGLOBIN 6.5 g/dl (13.5-17.5)
== END ==
LOC: M LAB REF 12:17
PROVIDERS: ATTEND Nurse Practitioner Family
DX: E66.9 Obesity, unspecified (principal); E55.9 Vitamin D deficiency, unspecified

== ENCOUNTER → 2023-03-28 | Outpatient (REF) | payer OTHER ==
[~2023-03-28] MED LIST changes: +AZAT50TA37 PO; +BUDE9TAB PO; +DOCU100C16 PO; +FERR325T3 PO; +PRED50TA PO
[2023-03-28 17:40] LABS: BASO # 0.1 10^3/uL (0.0-0.2); BASO % 0.9 % (0.0-1.0); EOS # 0.2 10^3/uL (0.0-0.5); EOS % 2.7 % (0.0-3.0); HEMATOCRIT 38.1 % (42.0-52.0); HEMOGLOBIN 11.1 g/dl (13.5-17.5); LYMPH # 1.4 10^3/uL (1.5-5.0); LYMPH % 24.9 % (24.0-44.0); MEAN CORPUSCULAR HEMOGLOBIN 23.3 pg (27.0-33.0); MEAN CORPUSCULAR HGB CONC 29.1 g/dl (32.0-36.5); MONO # 0.5 10^3/uL (0.0-0.8); MONO % 9.4 % (2.0-8.0); NEUTROPHILS # 3.4 10^3/uL (1.5-8.5); NEUTROPHILS % 61.9 % (36.0-66.0); RED BLOOD COUNT 4.76 10^6/uL (4.30-6.10); WHITE BLOOD COUNT 5.5 10^3/uL (4.0-10.0)
[2023-03-28 17:49] LABS: PLATELET COUNT, AUTOMATED 209 10^3/uL (150-450)
[2023-03-28 18:01] LABS: HEMOGLOBIN A1c 6.5 % (4.0-6.0)
[2023-03-28 18:09] LABS: ALBUMIN 3.9 G/DL (3.2-5.2); ALKALINE PHOSPHATASE 98 U/L (46-116); ALT/SGPT 40 U/L (7.0-40); AST/SGOT 18 U/L (<34); BILIRUBIN,TOTAL 0.2 MG/DL (0.3-1.2); BLOOD UREA NITROGEN 9 MG/DL (9-23); CALCIUM LEVEL 8.4 MG/DL (8.5-10.1); CARBON DIOXIDE LEVEL 22 MMOL/L (20-31); CHLORIDE LEVEL 107 MMOL/L (98-107); CREATININE FOR GFR 0.73 MG/DL (0.70-1.30); GLOMERULAR FILTRATION RATE > 60.0 (>60); GLUCOSE, FASTING 209 MG/DL (60-100); IRON (FE) 29 UG/DL (65-175); PERCENT SATURATION 7.5 % (19.7-50.0); POTASSIUM SERUM 4.3 MMOL/L (3.5-5.1); SODIUM LEVEL 136 MMOL/L (136-145); TOTAL IRON BINDING CAPACITY 385 UG/DL (250-425); TOTAL PROTEIN 6.6 G/DL (5.7-8.2)
[2023-03-28 18:11] LABS: VITAMIN B12 LEVEL 685 PG/ML (211-911)
== END ==
LOC: M LAB REF 16:34
PROVIDERS: ATTEND Nurse Practitioner Family
DX: D64.9 Anemia, unspecified (principal); Z13.1 Encounter for screening for diabetes mellitus

== ENCOUNTER 2023-04-08 01:26 | Emergency (ER) | payer OTHER ==
[~2023-04-08] VITALS: Ht 165.1 cm; Wt 94.5 kg
[2023-04-08 02:54] LABS: BASO % 0.6 % (0.0-1.0); EOS # 0.2 10^3/uL (0.0-0.5); EOS % 3.9 % (0.0-3.0); HEMATOCRIT 37.1 % (42.0-52.0); HEMOGLOBIN 11.2 g/dl (13.5-17.5); LYMPH # 1.3 10^3/uL (1.5-5.0); LYMPH % 27.2 % (24.0-44.0); MEAN CORPUSCULAR HEMOGLOBIN 23.8 pg (27.0-33.0); MEAN CORPUSCULAR HGB CONC 30.2 g/dl (32.0-36.5); MEAN CORPUSCULAR VOLUME 78.9 fl (80.0-96.0); MONO # 0.5 10^3/uL (0.0-0.8); MONO % 10.7 % (2.0-8.0); NEUTROPHILS # 2.7 10^3/uL (1.5-8.5); NEUTROPHILS % 57.4 % (36.0-66.0); PLATELET COUNT, AUTOMATED 188 10^3/uL (150-450); WHITE BLOOD COUNT 4.7 10^3/uL (4.0-10.0)
[2023-04-08 03:06] LABS: INR 1.02; PROTHROMBIN TIME 13.1 SECONDS (12.5-14.5)
[2023-04-08 03:19] LABS: ALKALINE PHOSPHATASE 108 U/L (46-116); ALT/SGPT 33 U/L (7.0-40); AST/SGOT 20 U/L (<34); BILIRUBIN,DIRECT < 0.1 MG/DL (<0.4); BILIRUBIN,TOTAL 0.2 MG/DL (0.3-1.2); BLOOD UREA NITROGEN 13 MG/DL (9-23); CARBON DIOXIDE LEVEL 24 MMOL/L (20-31); CHLORIDE LEVEL 109 MMOL/L (98-107); CREATININE FOR GFR 0.66 MG/DL (0.70-1.30); GLOMERULAR FILTRATION RATE > 60.0 (>60); GLUCOSE, FASTING 132 MG/DL (60-100); POTASSIUM SERUM 3.9 MMOL/L (3.5-5.1); SODIUM LEVEL 138 MMOL/L (136-145); TOTAL PROTEIN 6.8 G/DL (5.7-8.2)
[2023-04-08] MEDS ORDERED: ISOVUE-370 76% 100ML VIAL As Ordered ONE (06:39)
[2023-04-08] MEDS: ACETAMINOPHEN *IV* 1,000 MG in IV 1 EA IV ONE (07:11)
[2023-04-08 08:53] VITALS: BP 103/67; TEMP 97.2; O2SAT 99
[2023-04-08] MEDS ORDERED: PRED50TA PO (09:02)
[2023-04-08] MEDS ORDERED: AZAT50TA37 PO (09:02)
[2023-04-08] MEDS ORDERED: UCER9TAB PO (09:02)
[2023-04-09] MEDS ORDERED: D200CAP3 PO (14:58)
== END 2023-04-08 09:15 | disposition home or self-care (01) ==
LOC: M ED 01:26
DX: K92.89 Other specified diseases of the digestive system (principal); K50.90 Crohn's disease, unspecified, without complications; K64.9 Unspecified hemorrhoids; F17.210 Nicotine dependence, cigarettes, uncomplicated; Z88.8 Allergy status to other drugs, medicaments and biological substances; Z79.52 Long term (current) use of systemic steroids
CPT/HCPCS: 74177; 80048; 80076; 81001; 82270; 83605; 85025; 85610; 85730; 86850; 87040; 87486; 87507; 87581; 87633; 87798; 96365; 96366; 99284; J0131; Q9967

== ENCOUNTER 2023-04-09 13:12 | Inpatient (IN) | payer OTHER ==
[~2023-04-09] VITALS: Ht 165.1 cm; Wt 92.4 kg
[~2023-04-09 13:12] MED LIST changes: -BUDE9TAB PO; +BUDE9TAB4 PO; +UCER9TAB PO
[2023-04-09] MEDS ORDERED: D200CAP3 PO (14:58)
[2023-04-09 15:51] LABS: BASO % 0.5 % (0.0-1.0); EOS # 0.1 10^3/uL (0.0-0.5); HEMATOCRIT 36.3 % (42.0-52.0); HEMOGLOBIN 11.1 g/dl (13.5-17.5); LYMPH # 1.7 10^3/uL (1.5-5.0); LYMPH % 27.8 % (24.0-44.0); MEAN CORPUSCULAR HEMOGLOBIN 24.1 pg (27.0-33.0); MEAN CORPUSCULAR HGB CONC 30.6 g/dl (32.0-36.5); MEAN CORPUSCULAR VOLUME 78.9 fl (80.0-96.0); MONO # 0.7 10^3/uL (0.0-0.8); NEUTROPHILS # 3.6 10^3/uL (1.5-8.5); NEUTROPHILS % 59.4 % (36.0-66.0); PLATELET COUNT, AUTOMATED 178 10^3/uL (150-450)
[2023-04-09 16:08] LABS: LIPASE 31 U/L (12-53)
[2023-04-09 16:09] LABS: C REACTIVE PROTEIN QUANTITATIV < 0.40 MG/DL (<1.0)
[2023-04-09 16:12] LABS: ALBUMIN 3.9 G/DL (3.2-5.2); ALKALINE PHOSPHATASE 86 U/L (46-116); ALT/SGPT 35 U/L (7.0-40); AST/SGOT 20 U/L (<34); BILIRUBIN,DIRECT 0.1 MG/DL (<0.4); BILIRUBIN,TOTAL 0.4 MG/DL (0.3-1.2); TOTAL PROTEIN 6.6 G/DL (5.7-8.2)
[2023-04-09 16:20] LABS: ERYTHROCYTE SEDIMENTATION RATE < 1 mm/hr (0-15)
[2023-04-09 16:43] LABS: INR 1.1; PROTHROMBIN TIME 13.8 SECONDS (12.5-14.5)
[2023-04-09] MEDS ORDERED: ACETAMINOPHEN TAB 650MG DOSE (2X325MG) PO PRN (18:20)
[2023-04-09] MEDS ORDERED: GLUCOSE 4GM CHEW TABLET PO PRN (18:25)
[2023-04-09] MEDS ORDERED: DEXTROSE 50% 50ML SYRINGE IV PRN (18:25)
[2023-04-09] MEDS ORDERED: GLUCAGON INJ 1MG VIAL SC PRN (18:25)
[2023-04-09 18:45] LABS: HEMATOCRIT 35.1 % (42.0-52.0); HEMOGLOBIN 10.4 g/dl (13.5-17.5)
[2023-04-09] MEDS: predniSONE 20 MG TAB PO SCH (18:48)
[2023-04-09 19:16] LABS: BLOOD UREA NITROGEN 12 MG/DL (9-23); CALCIUM LEVEL 8.4 MG/DL (8.5-10.1); CARBON DIOXIDE LEVEL 25 MMOL/L (20-31); CHLORIDE LEVEL 107 MMOL/L (98-107); CREATININE FOR GFR 0.75 MG/DL (0.70-1.30); GLOMERULAR FILTRATION RATE > 60.0 (>60); GLUCOSE, FASTING 221 MG/DL (60-100); POTASSIUM SERUM 3.4 MMOL/L (3.5-5.1); SODIUM LEVEL 139 MMOL/L (136-145)
[2023-04-09] MEDS ORDERED: HOME MED LIST COMPLETE! XX SCH (19:30)
[2023-04-09 20:00] VITALS: BP 121/56; TEMP 97.6; O2SAT 98
[2023-04-09] MEDS: POTASSIUM CHLORIDE 10MEQ SR TABLET PO ONE (20:13)
[2023-04-09] MEDS: INSULIN LISPRO (NovoLOG) PER UNIT SC SCH (21:00)
[2023-04-09 23:59] VITALS: BP 120/58; TEMP 97.2; O2SAT 97
[2023-04-10 00:13] LABS: HEMATOCRIT 35.7 % (42.0-52.0); HEMOGLOBIN 10.9 g/dl (13.5-17.5)
[2023-04-10 04:27] LABS: BASO % 0.3 % (0.0-1.0); HEMATOCRIT 36.2 % (42.0-52.0); HEMOGLOBIN 10.9 g/dl (13.5-17.5); LYMPH # 0.7 10^3/uL (1.5-5.0); LYMPH % 10.5 % (24.0-44.0); MEAN CORPUSCULAR HEMOGLOBIN 23.6 pg (27.0-33.0); MEAN CORPUSCULAR HGB CONC 30.1 g/dl (32.0-36.5); MEAN CORPUSCULAR VOLUME 78.5 fl (80.0-96.0); MONO # 0.1 10^3/uL (0.0-0.8); MONO % 1.9 % (2.0-8.0); NEUTROPHILS # 5.6 10^3/uL (1.5-8.5); NEUTROPHILS % 86.1 % (36.0-66.0); PLATELET COUNT, AUTOMATED 201 10^3/uL (150-450); RED BLOOD COUNT 4.61 10^6/uL (4.30-6.10); WHITE BLOOD COUNT 6.5 10^3/uL (4.0-10.0)
[2023-04-10 04:38] VITALS: BP 119/71; TEMP 97.8; O2SAT 98
[2023-04-10 05:02] LABS: BLOOD UREA NITROGEN 12 MG/DL (9-23); CALCIUM LEVEL 8.4 MG/DL (8.5-10.1); CARBON DIOXIDE LEVEL 24 MMOL/L (20-31); CHLORIDE LEVEL 108 MMOL/L (98-107); CREATININE FOR GFR 0.67 MG/DL (0.70-1.30); GLOMERULAR FILTRATION RATE > 60.0 (>60); GLUCOSE, FASTING 235 MG/DL (60-100); MAGNESIUM LEVEL 1.7 MG/DL (1.8-2.4); POTASSIUM SERUM 4.6 MMOL/L (3.5-5.1); SODIUM LEVEL 137 MMOL/L (136-145)
[2023-04-10 08:21] VITALS: BP 119/67; TEMP 97.1; O2SAT 97
[2023-04-10] MEDS: INSULIN LISPRO (NovoLOG) PER UNIT SC SCH (08:26)
[2023-04-10] MEDS: ENOXAPARIN 40MG/0.4ML SYRINGE (J1650 PER 10MG) SC SCH (08:27)
[2023-04-10] MEDS: MAGNESIUM GLUCONATE 500 MG TAB PO SCH (08:39)
[2023-04-10 12:00] VITALS: BP 118/57; TEMP 97.6; O2SAT 99
[2023-04-10] MEDS ORDERED: ISOVUE-370 76% 100ML VIAL As Ordered ONE (12:08)
[2023-04-10 12:23] LABS: HEMATOCRIT 36.3 % (42.0-52.0); HEMOGLOBIN 11.3 g/dl (13.5-17.5)
[2023-04-10 16:00] VITALS: BP 117/64; TEMP 97.8; O2SAT 99
[2023-04-10 18:49] LABS: HEMATOCRIT 35.7 % (42.0-52.0); HEMOGLOBIN 10.9 g/dl (13.5-17.5)
[2023-04-10 19:27] VITALS: BP 120/85; TEMP 97.6; O2SAT 98
[2023-04-10 23:40] VITALS: BP 129/70; TEMP 98; O2SAT 94
[2023-04-11 04:04] VITALS: BP 120/62; TEMP 97.5; O2SAT 97
[2023-04-11 05:49] LABS: BASO % 0.3 % (0.0-1.0); EOS % 0.2 % (0.0-3.0); HEMATOCRIT 34.9 % (42.0-52.0); HEMOGLOBIN 10.8 g/dl (13.5-17.5); LYMPH # 1.7 10^3/uL (1.5-5.0); LYMPH % 16.6 % (24.0-44.0); MEAN CORPUSCULAR HEMOGLOBIN 24.3 pg (27.0-33.0); MEAN CORPUSCULAR HGB CONC 30.9 g/dl (32.0-36.5); MEAN CORPUSCULAR VOLUME 78.6 fl (80.0-96.0); MONO # 0.9 10^3/uL (0.0-0.8); MONO % 8.3 % (2.0-8.0); NEUTROPHILS # 7.7 10^3/uL (1.5-8.5); NEUTROPHILS % 74.2 % (36.0-66.0); PLATELET COUNT, AUTOMATED 196 10^3/uL (150-450); RED BLOOD COUNT 4.44 10^6/uL (4.30-6.10); WHITE BLOOD COUNT 10.4 10^3/uL (4.0-10.0)
[2023-04-11 06:06] LABS: BLOOD UREA NITROGEN 12 MG/DL (9-23); CALCIUM LEVEL 8.6 MG/DL (8.5-10.1); CARBON DIOXIDE LEVEL 27 MMOL/L (20-31); CHLORIDE LEVEL 107 MMOL/L (98-107); CREATININE FOR GFR 0.76 MG/DL (0.70-1.30); GLOMERULAR FILTRATION RATE > 60.0 (>60); GLUCOSE, FASTING 199 MG/DL (60-100); MAGNESIUM LEVEL 1.9 MG/DL (1.8-2.4); POTASSIUM SERUM 3.9 MMOL/L (3.5-5.1); SODIUM LEVEL 140 MMOL/L (136-145)
[2023-04-11 07:34] VITALS: BP 104/64; TEMP 98; O2SAT 99
[2023-04-11 12:57] VITALS: BP 110/59; TEMP 97.6; O2SAT 98
[2023-04-11 15:48] VITALS: BP 150/74; TEMP 98; O2SAT 98
[2023-04-11] MEDS: GOLYTELY SOLN 4000 ML BTL PO ONE (18:23)
[2023-04-11 19:56] VITALS: BP 126/70; TEMP 97.2; O2SAT 99
[2023-04-11] MEDS: BISACODYL 5MG TAB PO ONE (20:02)
[2023-04-12 00:14] VITALS: BP 134/58; TEMP 97.4; O2SAT 98
[2023-04-12 04:22] VITALS: BP 117/65; TEMP 97.5; O2SAT 99
[2023-04-12 05:43] LABS: BASO % 0.4 % (0.0-1.0); EOS % 0.2 % (0.0-3.0); HEMATOCRIT 35.8 % (42.0-52.0); LYMPH # 2.2 10^3/uL (1.5-5.0); LYMPH % 21.5 % (24.0-44.0); MEAN CORPUSCULAR HEMOGLOBIN 24.4 pg (27.0-33.0); MEAN CORPUSCULAR HGB CONC 30.7 g/dl (32.0-36.5); MEAN CORPUSCULAR VOLUME 79.4 fl (80.0-96.0); MONO # 0.7 10^3/uL (0.0-0.8); MONO % 7.2 % (2.0-8.0); NEUTROPHILS # 7.1 10^3/uL (1.5-8.5); NEUTROPHILS % 70.4 % (36.0-66.0); PLATELET COUNT, AUTOMATED 218 10^3/uL (150-450); RED BLOOD COUNT 4.51 10^6/uL (4.30-6.10)
[2023-04-12 06:03] LABS: BLOOD UREA NITROGEN 14 MG/DL (9-23); CALCIUM LEVEL 8.3 MG/DL (8.5-10.1); CARBON DIOXIDE LEVEL 25 MMOL/L (20-31); CHLORIDE LEVEL 106 MMOL/L (98-107); CREATININE FOR GFR 0.75 MG/DL (0.70-1.30); GLOMERULAR FILTRATION RATE > 60.0 (>60); GLUCOSE, FASTING 107 MG/DL (60-100); MAGNESIUM LEVEL 1.8 MG/DL (1.8-2.4); POTASSIUM SERUM 3.9 MMOL/L (3.5-5.1); SODIUM LEVEL 139 MMOL/L (136-145)
[2023-04-12 08:29] VITALS: BP 136/72; TEMP 97.5; O2SAT 96
[2023-04-12 12:57] VITALS: BP 125/66; TEMP 97.5; O2SAT 98
[2023-04-12 13:11] VITALS: BP 118/70; O2SAT 99
[2023-04-12 14:00] VITALS: BP 126/73; TEMP 97.5; O2SAT 98
[2023-04-12] MEDS ORDERED: HYDR26CR TOP (14:49)
[2023-04-12] MEDS ORDERED: MIRA3350 PO (14:49)
[2023-04-12] MEDS ORDERED: MESA50SU PR (14:49)
[2023-04-12] MEDS ORDERED: PRED10TA2 PO (14:49)
[2023-04-12] MEDS ORDERED: PREPARATION H SUPP (HEMORRHOID) PR SCH (21:00)
[2023-04-13] MEDS ORDERED: MESALAMINE 1,000 MG SUPP PR SCH (09:00)
[2023-04-13] MEDS ORDERED: MIRALAX *UNIT DOSE* 17GM PACKET PO SCH (09:00)
== END 2023-04-12 16:09 | disposition home or self-care (01) | DRG 254 ==
LOC: M ED 13:12 → M ED INP 17:26 → M PCU 20:41
PROVIDERS: ADMIT Internal Medicine; ATTEND Internal Medicine
PROC: 0DBF8ZX Excision of Right Large Intestine, Via Natural or Artificial Opening Endoscopic, Diagnostic (ICD-10-PCS; 2023-04-12)
PROC: 0DBG8ZX Excision of Left Large Intestine, Via Natural or Artificial Opening Endoscopic, Diagnostic (ICD-10-PCS; principal; 2023-04-12 11:30)
DX: K64.8 Other hemorrhoids (principal); K76.0 Fatty (change of) liver, not elsewhere classified; K62.5 Hemorrhage of anus and rectum; K64.4 Residual hemorrhoidal skin tags; K21.9 Gastro-esophageal reflux disease without esophagitis; F43.10 Post-traumatic stress disorder, unspecified; F90.9 Attention-deficit hyperactivity disorder, unspecified type; F17.200 Nicotine dependence, unspecified, uncomplicated; Q43.8 Other specified congenital malformations of intestine; K57.30 Diverticulosis of large intestine without perforation or abscess without bleeding; R73.03 Prediabetes; Z79.52 Long term (current) use of systemic steroids; Z88.8 Allergy status to other drugs, medicaments and biological substances

== ENCOUNTER 2023-04-20 17:13 | Inpatient (IN) | payer OTHER ==
[~2023-04-20] VITALS: Ht 165.1 cm; Wt 95.2 kg
[~2023-04-20 17:13] MED LIST changes: -BUPR150T12 PO; -FERR1TAB8 PO; -HYDR26CR PR; -MIRA33506 PO
[2023-04-20 18:52] LABS: BASO % 0.5 % (0.0-1.0); EOS # 0.2 10^3/uL (0.0-0.5); EOS % 2.6 % (0.0-3.0); HEMATOCRIT 24.5 % (42.0-52.0); HEMOGLOBIN 7.3 g/dl (13.5-17.5); LYMPH # 1.4 10^3/uL (1.5-5.0); LYMPH % 15.9 % (24.0-44.0); MEAN CORPUSCULAR HGB CONC 29.8 g/dl (32.0-36.5); MEAN CORPUSCULAR VOLUME 80.6 fl (80.0-96.0); MONO # 0.7 10^3/uL (0.0-0.8); NEUTROPHILS # 6.1 10^3/uL (1.5-8.5); NEUTROPHILS % 72.1 % (36.0-66.0); PLATELET COUNT, AUTOMATED 225 10^3/uL (150-450); RED BLOOD COUNT 3.04 10^6/uL (4.30-6.10); WHITE BLOOD COUNT 8.5 10^3/uL (4.0-10.0)
[2023-04-20 19:06] LABS: INR 1.13; PROTHROMBIN TIME 14.2 SECONDS (12.5-14.5)
[2023-04-20 19:24] LABS: ALBUMIN 3.5 G/DL (3.2-5.2); ALKALINE PHOSPHATASE 65 U/L (46-116); ALT/SGPT 20 U/L (7.0-40); AST/SGOT < 8 U/L (<34); BILIRUBIN,DIRECT < 0.1 MG/DL (<0.4); BILIRUBIN,TOTAL 0.2 MG/DL (0.3-1.2); BLOOD UREA NITROGEN 16 MG/DL (9-23); CALCIUM LEVEL 8.3 MG/DL (8.5-10.1); CARBON DIOXIDE LEVEL 29 MMOL/L (20-31); CHLORIDE LEVEL 107 MMOL/L (98-107); CREATININE FOR GFR 0.82 MG/DL (0.70-1.30); GLOMERULAR FILTRATION RATE > 60.0 (>60); GLUCOSE, FASTING 191 MG/DL (60-100); POTASSIUM SERUM 4.1 MMOL/L (3.5-5.1); SODIUM LEVEL 140 MMOL/L (136-145)
[2023-04-20 19:59] VITALS: BP 120/63; TEMP 98.5; O2SAT 99
[2023-04-20 20:09] VITALS: BP 117/60; TEMP 98.3; O2SAT 97
[2023-04-20 20:17] VITALS: BP 112/56; TEMP 98.2; O2SAT 97
[2023-04-20 20:46] VITALS: BP 110/57; TEMP 98.5; O2SAT 97
[2023-04-20 21:40] VITALS: BP 124/66; TEMP 98; O2SAT 98
[2023-04-20] MEDS ORDERED: HYDR26CR PR (22:03)
[2023-04-20] MEDS ORDERED: MIRA33506 PO (22:18)
[2023-04-20] MEDS ORDERED: AZAT50TA37 PO (22:18)
[2023-04-20] MEDS ORDERED: VALT500T PO (22:18)
[2023-04-20] MEDS ORDERED: PRED10TA2 PO (22:18)
[2023-04-20] MEDS ORDERED: MESA50SU PR (22:18)
[2023-04-20] MEDS ORDERED: DOCU100C16 PO (22:18)
[2023-04-20] MEDS ORDERED: FERR1TAB8 PO (22:18)
[2023-04-20] MEDS ORDERED: BUPR150T12 PO (22:18)
[2023-04-20] MEDS ORDERED: HOME MED LIST COMPLETE! XX SCH (22:20)
[2023-04-20] MEDS ORDERED: GLUCAGON INJ 1MG VIAL SC PRN (23:00)
[2023-04-20] MEDS ORDERED: GLUCOSE 4GM CHEW TABLET PO PRN (23:00)
[2023-04-20] MEDS ORDERED: DEXTROSE 50% 50ML SYRINGE IV PRN (23:00)
[2023-04-20 23:52] VITALS: BP 122/60; TEMP 97.8; O2SAT 95
[2023-04-20 23:58] LABS: RSV AMPLIFICATION NEGATIVE (NEGATIVE)
[2023-04-21 00:03] LABS: INR 1.05; PARTIAL THROMBOPLASTIN TIME 23.7 SECONDS (24.8-34.2); PROTHROMBIN TIME 13.4 SECONDS (12.5-14.5)
[2023-04-21] MEDS: NS 1,000 ML IV SCH (00:09)
[2023-04-21 00:11] VITALS: BP 125/63; TEMP 98.5; O2SAT 97
[2023-04-21 00:18] LABS: HEMOGLOBIN A1c 6.7 % (4.0-6.0)
[2023-04-21 01:10] VITALS: BP 125/63; TEMP 98; O2SAT 100
[2023-04-21 01:35] VITALS: BP 106/55; TEMP 98; O2SAT 98
[2023-04-21] MEDS: ACETAMINOPHEN *IV* 1,000 MG in IV 1 EA IV ONE (03:00)
[2023-04-21] MEDS: INSULIN LISPRO (NovoLOG) PER UNIT SC SCH ×2 (07:30→20:07)
[2023-04-21 07:43] LABS: BASO # 0.1 10^3/uL (0.0-0.2); BASO % 0.7 % (0.0-1.0); EOS # 0.3 10^3/uL (0.0-0.5); EOS % 3.3 % (0.0-3.0); HEMATOCRIT 30.9 % (42.0-52.0); LYMPH # 1.9 10^3/uL (1.5-5.0); LYMPH % 21.3 % (24.0-44.0); MEAN CORPUSCULAR HEMOGLOBIN 25.7 pg (27.0-33.0); MEAN CORPUSCULAR HGB CONC 30.7 g/dl (32.0-36.5); MEAN CORPUSCULAR VOLUME 83.5 fl (80.0-96.0); MONO # 0.8 10^3/uL (0.0-0.8); MONO % 9.2 % (2.0-8.0); NEUTROPHILS # 5.6 10^3/uL (1.5-8.5); NEUTROPHILS % 64.2 % (36.0-66.0); PLATELET COUNT, AUTOMATED 191 10^3/uL (150-450); WHITE BLOOD COUNT 8.8 10^3/uL (4.0-10.0)
[2023-04-21 07:44] LABS: HEMOGLOBIN 9.5 g/dl (13.5-17.5)
[2023-04-21 07:58] LABS: BLOOD UREA NITROGEN 15 MG/DL (9-23); CALCIUM LEVEL 8.3 MG/DL (8.5-10.1); CARBON DIOXIDE LEVEL 25 MMOL/L (20-31); CHLORIDE LEVEL 107 MMOL/L (98-107); CREATININE FOR GFR 0.81 MG/DL (0.70-1.30); GLOMERULAR FILTRATION RATE > 60.0 (>60); GLUCOSE, FASTING 192 MG/DL (60-100); MAGNESIUM LEVEL 1.9 MG/DL (1.8-2.4); POTASSIUM SERUM 4.3 MMOL/L (3.5-5.1); SODIUM LEVEL 137 MMOL/L (136-145)
[2023-04-21] MEDS: PANTOPRAZOLE 40MG VIAL IV SCH (09:21)
[2023-04-21] MEDS: FIORICET TAB PO PRN (09:28)
[2023-04-21 18:40] VITALS: BP 128/63; TEMP 98; O2SAT 99
[2023-04-21 18:49] LABS: HEMATOCRIT 28.9 % (42.0-52.0); HEMOGLOBIN 9.1 g/dl (13.5-17.5)
[2023-04-21 19:58] VITALS: BP 122/68; TEMP 97; O2SAT 100
[2023-04-22] VITALS: BP 125/77; TEMP 97.4; O2SAT 100
[2023-04-22 04:00] VITALS: BP 119/62; TEMP 97.2; O2SAT 98
[2023-04-22 05:52] LABS: BASO # 0.1 10^3/uL (0.0-0.2); EOS # 0.2 10^3/uL (0.0-0.5); EOS % 3.2 % (0.0-3.0); HEMATOCRIT 27.8 % (42.0-52.0); HEMOGLOBIN 10.1 g/dl (13.5-17.5); LYMPH # 1.7 10^3/uL (1.5-5.0); LYMPH % 23.4 % (24.0-44.0); MEAN CORPUSCULAR HEMOGLOBIN 30.1 pg (27.0-33.0); MEAN CORPUSCULAR HGB CONC 36.3 g/dl (32.0-36.5); MEAN CORPUSCULAR VOLUME 82.7 fl (80.0-96.0); MONO # 0.7 10^3/uL (0.0-0.8); MONO % 9.5 % (2.0-8.0); NEUTROPHILS # 4.5 10^3/uL (1.5-8.5); NEUTROPHILS % 61.3 % (36.0-66.0); PLATELET COUNT, AUTOMATED 219 10^3/uL (150-450); RED BLOOD COUNT 3.36 10^6/uL (4.30-6.10); WHITE BLOOD COUNT 7.3 10^3/uL (4.0-10.0)
[2023-04-22 06:18] LABS: BLOOD UREA NITROGEN 8 MG/DL (9-23); CALCIUM LEVEL 7.5 MG/DL (8.5-10.1); CARBON DIOXIDE LEVEL 24 MMOL/L (20-31); CHLORIDE LEVEL 107 MMOL/L (98-107); CREATININE FOR GFR 0.82 MG/DL (0.70-1.30); GLOMERULAR FILTRATION RATE > 60.0 (>60); GLUCOSE, FASTING 266 MG/DL (60-100); MAGNESIUM LEVEL 1.7 MG/DL (1.8-2.4); POTASSIUM SERUM 4.2 MMOL/L (3.5-5.1); SODIUM LEVEL 137 MMOL/L (136-145)
[2023-04-22 07:43] VITALS: BP 108/64; TEMP 97.9; O2SAT 96
[2023-04-22] MEDS ORDERED: ANUSOL HC 25MG SUPP PR SCH (09:00)
[2023-04-22] MEDS: MAG SULF 1GM/100ML (MAG RUN) 1 GM in IV 1 EA IV SCH (09:30)
[2023-04-22] MEDS: INSULIN LISPRO (NovoLOG) PER UNIT SC STA (09:31)
[2023-04-22 11:59] LABS: BLOOD UREA NITROGEN 9 MG/DL (9-23); CARBON DIOXIDE LEVEL 23 MMOL/L (20-31); CHLORIDE LEVEL 108 MMOL/L (98-107); CREATININE FOR GFR 0.71 MG/DL (0.70-1.30); GLOMERULAR FILTRATION RATE > 60.0 (>60); GLUCOSE, FASTING 234 MG/DL (60-100); MAGNESIUM LEVEL 2.2 MG/DL (1.8-2.4); POTASSIUM SERUM 4.8 MMOL/L (3.5-5.1); SODIUM LEVEL 135 MMOL/L (136-145)
[2023-04-22 12:00] VITALS: BP 128/57; TEMP 97.6; O2SAT 96
[2023-04-22] MEDS: MIRALAX *UNIT DOSE* 17GM PACKET PO SCH (13:35)
[2023-04-22] MEDS: buPROPion **XL** TABLET 150MG (WELLBUTRIN XL) PO SCH (13:35)
[2023-04-22] MEDS: SENOKOT S TAB PO SCH (13:35)
[2023-04-22] MEDS: valACYclovir HCL 500 MG TAB PO SCH (13:35)
[2023-04-22] MEDS ORDERED: MESALAMINE 1,000 MG SUPP PR SCH (21:00)
[2023-04-23] MEDS ORDERED: DOCUSATE SODIUM 100MG CAPSULE PO SCH (09:00)
== END 2023-04-22 15:00 | disposition home or self-care (01) | DRG 253 ==
LOC: M ED 17:13 → M ED INP 22:59 → ENRESERV 04-21 17:54 → M PCU 04-21 18:40
PROVIDERS: ADMIT Internal Medicine; ATTEND Student in an Organized Health Care Education/Training Program
PROC: 30233N1 Transfusion of Nonautologous Red Blood Cells into Peripheral Vein, Percutaneous Approach (ICD-10-PCS; principal; 2023-04-20)
DX: K62.5 Hemorrhage of anus and rectum (principal); E11.9 Type 2 diabetes mellitus without complications; K62.3 Rectal prolapse; K21.9 Gastro-esophageal reflux disease without esophagitis; F17.200 Nicotine dependence, unspecified, uncomplicated; K64.8 Other hemorrhoids; K64.4 Residual hemorrhoidal skin tags; R51.9 Headache, unspecified; D62 Acute posthemorrhagic anemia; R42 Dizziness and giddiness

== ENCOUNTER → 2023-04-20 | Outpatient (REF) | payer OTHER ==
[~2023-04-20] MED LIST changes: +BUPR150T12 PO; +D200CAP3 PO; +FERR1TAB8 PO; +HYDR26CR PR; +HYDR26CR TOP; +MESA50SU PR; +MIRA33506 PO; +PRED10TA2 PO
[2023-04-20 11:57] LABS: BASO % 0.5 % (0.0-1.0); EOS # 0.2 10^3/uL (0.0-0.5); EOS % 2.7 % (0.0-3.0); HEMATOCRIT 25.1 % (42.0-52.0); HEMOGLOBIN 7.5 g/dl (13.5-17.5); LYMPH % 23.1 % (24.0-44.0); MEAN CORPUSCULAR HEMOGLOBIN 24.2 pg (27.0-33.0); MEAN CORPUSCULAR HGB CONC 29.9 g/dl (32.0-36.5); MONO # 0.9 10^3/uL (0.0-0.8); MONO % 10.3 % (2.0-8.0); NEUTROPHILS # 5.2 10^3/uL (1.5-8.5); NEUTROPHILS % 62.2 % (36.0-66.0); PLATELET COUNT, AUTOMATED 218 10^3/uL (150-450); WHITE BLOOD COUNT 8.4 10^3/uL (4.0-10.0)
[2023-04-20 12:16] LABS: PERCENT SATURATION 2.5 % (19.7-50.0)
[2023-04-20 12:18] LABS: FOLATE 13.8 NG/ML (>5.4)
== END ==
LOC: M LAB REF 10:10
PROVIDERS: ATTEND Nurse Practitioner Family
DX: D64.9 Anemia, unspecified (principal)

== ENCOUNTER 2023-06-08 11:09 | Outpatient (CLI) | payer OTHER ==
[~2023-06-08] VITALS: Ht 165.1 cm; Wt 93.0 kg
[~2023-06-08 11:09] MED LIST changes: +BUPR-597; +BUPR150T12 PO; -BUPR300T92; +DOXY-323 PO; -DOXY-443 PO; +FERR1TAB8 PO; +HYDR26CR PR; +MIRA33506 PO
[2023-06-08 11:35] VITALS: BP 112/68; O2SAT 99
[2023-06-08] MEDS: IRON SUCROSE 200 MG in NS 100 ML OVER 1 HR IV ONE (11:45)
[2023-06-08 12:45] VITALS: BP 107/66; O2SAT 98
== END 2023-06-08 13:05 | disposition home or self-care (01) ==
LOC: M INFU 11:09
PROVIDERS: ATTEND Internal Medicine Hematology & Oncology
DX: D50.9 Iron deficiency anemia, unspecified (principal); Z88.8 Allergy status to other drugs, medicaments and biological substances
CPT/HCPCS: 96365; J1756

== ENCOUNTER 2023-06-29 13:41 | Emergency (ER) | payer OTHER ==
[~2023-06-29] VITALS: Ht 165.1 cm; Wt 93.2 kg
[2023-06-29] MEDS: KETOROLAC 60MG 2ML VIAL IM ONE (16:54)
[2023-06-29] MEDS: methocarbamoL 500 MG TAB PO ONE (16:55)
[2023-06-29] MEDS: predniSONE 20 MG TAB PO ONE (16:55)
[2023-06-29] MEDS ORDERED: METH-1164 PO (18:22)
[2023-06-29] MEDS ORDERED: PRED20TA PO (18:22)
[2023-06-29 18:41] VITALS: BP 111/69; TEMP 98.1; O2SAT 100
== END 2023-06-29 18:47 | disposition home or self-care (01) ==
LOC: M ED 13:41 → EDBD 13:41 → M ED 18:47
DX: M54.31 Sciatica, right side (principal); E11.9 Type 2 diabetes mellitus without complications; K21.9 Gastro-esophageal reflux disease without esophagitis; G40.89 Other seizures; K50.90 Crohn's disease, unspecified, without complications; F10.10 Alcohol abuse, uncomplicated; Z88.8 Allergy status to other drugs, medicaments and biological substances; Z79.899 Other long term (current) drug therapy; Z79.52 Long term (current) use of systemic steroids
CPT/HCPCS: 72110; 73502; 96372; 99284; J1885; J7512

== ENCOUNTER 2023-07-07 09:00 | Outpatient (CLI) | payer OTHER ==
[~2023-07-07 09:00] MED LIST changes: +METH-1164 PO; +PRED20TA PO
[2023-07-07] MEDS: IRON SUCROSE 200 MG in NS 100 ML OVER 1 HR IV ONE (09:12)
[2023-07-07 09:32] VITALS: BP 124/78; O2SAT 99
[2023-07-07 10:18] VITALS: BP 125/72; O2SAT 97
== END 2023-07-07 10:18 | disposition home or self-care (01) ==
LOC: M INFU 09:00
PROVIDERS: ATTEND Internal Medicine Hematology & Oncology
DX: D50.9 Iron deficiency anemia, unspecified (principal); Z88.8 Allergy status to other drugs, medicaments and biological substances
CPT/HCPCS: 96365; J1756

== ENCOUNTER → 2023-08-22 | Outpatient (REF) | payer OTHER ==
[~2023-08-22] MED LIST changes: +ONDA-282; +ONDA-282 PO; -ONDA4TAB6; -ONDA4TAB6 PO
== END ==
LOC: M LAB REF 12:29
PROVIDERS: ATTEND Nurse Practitioner Family
DX: R39.9 Unspecified symptoms and signs involving the genitourinary system (principal)

== ENCOUNTER 2023-11-10 09:52 | Outpatient (CLI) | payer OTHER ==
[~2023-11-10] VITALS: Ht 165.1 cm; Wt 90.0 kg
[~2023-11-10 09:52] MED LIST changes: -DOXY-323 PO; +DOXY-441 PO; +GABA-1490; -GABA600T4
[2023-11-10 10:25] VITALS: BP 117/82; O2SAT 96
[2023-11-10] MEDS: IRON SUCROSE 200 MG in NS 100 ML OVER 1 HR IV ONE (10:57)
[2023-11-10 12:00] VITALS: BP 112/75; O2SAT 100
== END 2023-11-10 12:10 ==
LOC: M INFU 09:52
PROVIDERS: ATTEND Internal Medicine Medical Oncology
DX: D50.9 Iron deficiency anemia, unspecified (principal); Z88.8 Allergy status to other drugs, medicaments and biological substances
CPT/HCPCS: 96365; J1756

== ENCOUNTER → 2023-11-28 | Outpatient (REF) | payer OTHER ==
[2023-11-28 13:42] LABS: BASO % 0.6 % (0.0-1.0); EOS # 0.1 10^3/uL (0.0-0.5); EOS % 2.4 % (0.0-3.0); HEMOGLOBIN 15.2 g/dl (13.5-17.5); LYMPH # 1.4 10^3/uL (1.5-5.0); LYMPH % 27.8 % (24.0-44.0); MEAN CORPUSCULAR HEMOGLOBIN 29.8 pg (27.0-33.0); MEAN CORPUSCULAR HGB CONC 33.8 g/dl (32.0-36.5); MEAN CORPUSCULAR VOLUME 88.2 fl (80.0-96.0); MONO # 0.6 10^3/uL (0.0-0.8); MONO % 12.5 % (2.0-8.0); NEUTROPHILS # 2.8 10^3/uL (1.5-8.5); NEUTROPHILS % 56.5 % (36.0-66.0); PLATELET COUNT, AUTOMATED 148 10^3/uL (150-450)
[2023-11-28 14:06] LABS: HEMOGLOBIN A1c 6.9 % (4.0-6.0)
[2023-11-28 14:18] LABS: THYROID STIMULATING HORMONE 1.683 uIU/ML (0.55-4.78)
[2023-11-28 14:47] LABS: ALBUMIN 3.9 G/DL (3.2-5.2); ALKALINE PHOSPHATASE 112 U/L (46-116); ALT/SGPT 31 U/L (7.0-40); AST/SGOT 10 U/L (<34); BILIRUBIN,TOTAL 0.2 MG/DL (0.3-1.2); BLOOD UREA NITROGEN 13 MG/DL (9-23); CARBON DIOXIDE LEVEL 23 MMOL/L (20-31); CHLORIDE LEVEL 110 MMOL/L (98-107); CHOLESTEROL LEVEL 195 MG/DL (<200); CHOLESTEROL RISK RATIO 6.67 (<5); CREATININE FOR GFR 0.75 MG/DL (0.70-1.30); GLOMERULAR FILTRATION RATE > 60.0 (>60); GLUCOSE, FASTING 196 MG/DL (60-100); HDL CHOLESTEROL 29.2 MG/DL (>40); MAGNESIUM LEVEL 1.8 MG/DL (1.8-2.4); NON-HDL-C 165.8 MG/DL; POTASSIUM SERUM 4.3 MMOL/L (3.5-5.1); SODIUM LEVEL 140 MMOL/L (136-145); TOTAL PROTEIN 6.8 G/DL (5.7-8.2); TRIGLYCERIDES LEVEL 584 MG/DL (<150)
== END ==
LOC: M LAB REF 12:47
PROVIDERS: ATTEND Nurse Practitioner Family
DX: E66.9 Obesity, unspecified (principal)

== ENCOUNTER 2024-02-16 04:05 | Emergency (ER) | payer MEDICAID, OTHER ==
[~2024-02-16] VITALS: Ht 165.1 cm; Wt 93.2 kg
[2024-02-16 08:32] VITALS: BP 122/71; TEMP 97.8; O2SAT 98
== END 2024-02-16 09:30 | disposition home or self-care (01) ==
LOC: M ED 04:05
DX: R05.9 Cough, unspecified (principal); B34.1 Enterovirus infection, unspecified; E11.9 Type 2 diabetes mellitus without complications; K21.9 Gastro-esophageal reflux disease without esophagitis; K50.90 Crohn's disease, unspecified, without complications; F17.290 Nicotine dependence, other tobacco product, uncomplicated; F10.10 Alcohol abuse, uncomplicated; Z88.8 Allergy status to other drugs, medicaments and biological substances; Z79.899 Other long term (current) drug therapy

== ENCOUNTER → 2024-03-27 | Outpatient (REF) | payer OTHER ==
[2024-03-27 18:21] LABS: CHOLESTEROL RISK RATIO 4.32 (<5); HDL CHOLESTEROL 40.9 MG/DL (>40); LDL CHOLESTEROL 101.1 MG/DL (<100); NON-HDL-C 136.1 MG/DL
[2024-03-27 18:29] LABS: HEMOGLOBIN A1c 6.9 % (4.0-6.0)
== END ==
LOC: M LAB REF 16:36
PROVIDERS: ATTEND Nurse Practitioner Family
DX: R79.89 Other specified abnormal findings of blood chemistry (principal); R73.03 Prediabetes

== ENCOUNTER → 2024-06-11 | Outpatient (REF) | payer OTHER, MEDICAID ==
[~2024-06-11] MED LIST changes: -BUPR-597; +BUPR-766; -PRED50TA PO; +PRED50TA57 PO
[2024-06-11 15:12] LABS: CHOLESTEROL RISK RATIO 4.94 (<5); HDL CHOLESTEROL 36.4 MG/DL (>40); NON-HDL-C 143.6 MG/DL
[2024-06-11 15:14] LABS: FOLATE 13.6 NG/ML (>5.4)
[2024-06-11 17:11] LABS: HEMOGLOBIN A1c 7.2 % (4.0-6.0)
== END ==
LOC: M LAB REF 14:31
PROVIDERS: ATTEND Nurse Practitioner Family
DX: R79.89 Other specified abnormal findings of blood chemistry (principal); R73.03 Prediabetes; D64.9 Anemia, unspecified

== ENCOUNTER 2024-10-26 17:14 | Emergency (ER) | payer OTHER, MEDICAID ==
[~2024-10-26] VITALS: Ht 165.1 cm; Wt 97.8 kg
[2024-10-26 17:44] VITALS: TEMP 99.5
[2024-10-26] MEDS ORDERED: OXYC-517 (17:51)
[2024-10-26 19:36] LABS: BASO # 0.0 10^3/uL (0.0-0.2); BASO % 0.5 % (0.0-1.0); EOS # 0.1 10^3/uL (0.0-0.5); EOS % 0.9 % (0.0-3.0); LYMPH # 1.0 10^3/uL (1.5-5.0); LYMPH % 12.6 % (24.0-44.0); MONO # 0.7 10^3/uL (0.0-0.8); MONO % 9.4 % (2.0-8.0); NEUTROPHILS # 6.0 10^3/uL (1.5-8.5); NEUTROPHILS % 76.2 % (36.0-66.0); PLATELET COUNT, AUTOMATED 230 10^3/uL (150-450)
[2024-10-26 19:41] LABS: ERYTHROCYTE SEDIMENTATION RATE 30 mm/hr (0-15)
[2024-10-26] MEDS: DICYCLOMINE 10 MG CAP PO ONE (19:46)
[2024-10-26 19:55] LABS: ALT/SGPT 26 U/L (7.0-40); AST/SGOT 18 U/L (<34); C REACTIVE PROTEIN QUANTITATIV 3.42 MG/DL (<1.0); CALCIUM LEVEL 8.9 MG/DL (8.5-10.1); CARBON DIOXIDE LEVEL 26 MMOL/L (20-31); CHLORIDE LEVEL 107 MMOL/L (98-107); CREATININE FOR GFR 0.87 MG/DL (0.70-1.30); GLOMERULAR FILTRATION RATE > 90.0 (>60); POTASSIUM SERUM 4.0 MMOL/L (3.5-5.1); SODIUM LEVEL 142 MMOL/L (136-145)
[2024-10-26] MEDS ORDERED: LIDO5CRE7 TOP (21:04)
[2024-10-26] MEDS ORDERED: PERC5TAB12 PO (21:04)
[2024-10-26] MEDS ORDERED: KETO-204 PO (21:04)
[2024-10-26 21:15] VITALS: BP 112/68; O2SAT 98
[2024-10-26] MEDS: KETOROLAC 30 MG/ML 1 ML VIAL IM ONE (21:28)
[2024-10-26] MEDS: PERCOCET 5MG/325MG TAB PO ONE (21:29)
== END 2024-10-26 21:40 | disposition home or self-care (01) ==
LOC: EDBD 17:14 → M ED 17:14
DX: G89.18 Other acute postprocedural pain (principal); Z88.8 Allergy status to other drugs, medicaments and biological substances; Z79.2 Long term (current) use of antibiotics; Z79.899 Other long term (current) drug therapy
CPT/HCPCS: 80053; 83605; 85025; 85652; 86140; 96372; 99284; J1885

== ENCOUNTER → 2025-01-28 | Outpatient (REF) | payer OTHER, MEDICAID ==
[~2025-01-28] MED LIST changes: +KETO-204 PO; +LIDO5CRE7 TOP; +OXYC-517; +PERC5TAB12 PO
[2025-01-28 13:08] LABS: CREATININE, URINE 203.3 MG/DL; MALB URINE SIEMENS 8.0 MG/L; MAU/CREAT RATIO 3.9 MCG/MG (0.0-30.0)
== END ==
LOC: M LAB REF 11:52
PROVIDERS: ATTEND Nurse Practitioner Family
DX: E11.9 Type 2 diabetes mellitus without complications (principal)